=== PATIENT | female | born 1940 | race Caucasian/White ===

== ENCOUNTER 2022-04-14 14:05 | Inpatient (IN) | payer OTHER ==
[2022-04-14 15:27] LABS: #Eosinphils 0.1 thou/uL (0.0-0.7); #Lymphocytes 0.7 thou/uL (1.20-3.40); #Monocytes 0.7 thou/uL (0.11-0.59); #Neutrophils 13.9 thou/uL (1.40-6.50); %Basophils 0.1 % (0.0-1.0); %Eosinophils 0.4 % (0.0-10.0); %Lymphocytes 4.5 % (21.0-51.0); %Monocytes 4.7 % (0.0-10.0); %Neutrophils 90.3 % (42.0-75.0); Hemoglobin 14.4 g/dL (12.0-16.0); Mean Corpuscular HGB CONC 33.7 g/dL (32.0-36.0); Mean Corpuscular Hemoglobin 31.9 pg (27.0-31.0); Mean Corpuscular Volume 94.7 fl (78.0-98.0); Platelet Count 218 10x3/uL (130-400); RBC Distribution Width 11.3 % (11.5-14.5); Red Blood Cell (RBC) Count 4.51 mill/uL (4.20-5.40); White Blood Cell (WBC) Count 15.4 10x3/uL (4.8-10.8)
[2022-04-14 15:31] LABS: PTT 29.2 sec (22.9-36.1); Prothrombin Time 13.5 sec (12.0-14.7)
[2022-04-14] MEDS ORDERED: Ketorolac Tromethamine 30 MG/ML VIAL ONE (15:32)
[2022-04-14] MEDS ORDERED: Morphine 4 MG/ML VIAL ONE (15:32)
[2022-04-14 15:50] LABS: ALT (SGPT) 13 U/L (8-55); AST (SGOT) 16 U/L (5-34); Albumin 4.2 g/dL (3.4-4.8); Alkaline Phosphatase 77 U/L (40-110); Anion Gap 14 mmol/L (10-20); BUN (Urea Nitrogen) 10 mg/dL (9.8-20.1); Calc. Creatinine Clearance 0 mL/min (70-130); Calcium 9.6 mg/dL (7.8-10.44); Carbon Dioxide 25 mmol/L (23-31); Chloride 103 mmol/L (98-107); Estimated GFR 89; Globulin 2.4 g/dL (2.4-3.5); Glucose 214 mg/dL (83-110); Potassium 3.9 mmol/L (3.5-5.1); Protein, Total 6.6 g/dL (5.8-8.1); Sodium 138 mmol/L (136-145)
[2022-04-14] MEDS ORDERED: Dextrose 50% Abboject 50 ML SYRINGE SLOW IVP PRN (16:11)
[2022-04-14] MEDS ORDERED: Ondansetron PF 4 MG/2 ML Vial IVP PRN (16:11)
[2022-04-14] MEDS ORDERED: Insulin Regular 300 UNITS/3 ML VIAL SC PRN (16:11)
[2022-04-14] MEDS ORDERED: Dextrose 5% in Water 1,000 ML IV PRN (16:11)
[2022-04-14] MEDS ORDERED: Ipratropium/Albuterol 3 ML NEB NEB PRN ×2 (16:11→16:14)
[2022-04-14] MEDS ORDERED: hydrALAZINE 20 MG/ML VIAL SLOW IVP PRN ×2 (16:11→17:04)
[2022-04-14] MEDS ORDERED: Acetaminophen 325 MG TAB PO SCH ×2 (16:15→18:00)
[2022-04-14] MEDS ORDERED: Sodium Chloride 0.9% 1,000 ML IV SCH ×2 (16:15→17:07)
[2022-04-14] MEDS ORDERED: traMADol HCl 50 MG TAB PO PRN (16:52)
[2022-04-14] MEDS: traMADol HCl 50 MG TAB PO SCH (18:07)
[2022-04-14] MEDS: Acetaminophen 500 MG TAB PO SCH (18:07)
[2022-04-14] MEDS ORDERED: traMADol HCl 50 MG TAB ONE (18:12)
[2022-04-14] MEDS ORDERED: Acetaminophen 500 MG TAB ONE (18:12)
[2022-04-14 18:36] LABS: Bilirubin Negative (Negative); Blood, Urine Negative (Negative); CAUTI Indications for Culture Dysuria,urgency,freq; Clarity Turbid (Clear); Glucose, Urine (Dipstick) 100 mg/dL (Negative); Ketone, Urine Trace mg/dL (Negative); Leukocyte Negative Leu/uL (Negative); Nitrite 2+ (Negative); Protein, Urine (Dipstick) Negative (Neg-Trace); RBC/HPF 0-3 HPF (0-3); Specific Gravity, Urine 1.015 (1.002-1.036); Squamous Epithelial 0-3 HPF (0-3); Urobilinogen Normal mg/dL (Less than 2); WBC/HPF 0-3 HPF (0-3)
[2022-04-14 18:37] LABS: Bacteria/HPF 1+ HPF (None Seen)
[2022-04-14 18:38] LABS: Urine Culture Reflex No No
[2022-04-14 19:03] LABS: SARS-CoV-2 NAA Rapid Test Not Detected (NotDetected)
[2022-04-14] MEDS ORDERED: Cyclobenzaprine 10 MG TAB ONE (21:21)
[2022-04-14] MEDS: Cyclobenzaprine 10 MG TAB PO PRN (21:27)
[2022-04-14] MEDS: Ibuprofen 200 MG TAB PO PRN (22:24)
[2022-04-14] MEDS: Morphine 2 MG/ML VIAL SLOW IVP PRN (22:58)
[2022-04-14] MEDS: Famotidine/PF 20 mg/2ml Vial SLOW IVP SCH (23:00)
[2022-04-14] MEDS: Senokot S 8.6-50 MG TAB PO SCH (23:17)
[2022-04-15 00:17] VITALS: BMI 29.5
[2022-04-15] MEDS: Acetaminophen 500 MG TAB PO SCH ×4 (00:53→19:46)
[2022-04-15] MEDS: traMADol HCl 50 MG TAB PO SCH ×4 (00:54→19:46)
[2022-04-15] MEDS: Morphine 2 MG/ML VIAL SLOW IVP PRN ×3 (04:09→14:11)
[2022-04-15 07:24] LABS: #Eosinphils 0.1 thou/uL (0.0-0.7); #Lymphocytes 1.4 thou/uL (1.20-3.40); #Monocytes 1.2 thou/uL (0.11-0.59); #Neutrophils 7.5 thou/uL (1.40-6.50); %Basophils 0.5 % (0.0-1.0); %Eosinophils 0.6 % (0.0-10.0); Hemoglobin 12.3 g/dL (12.0-16.0); Mean Corpuscular HGB CONC 34.1 g/dL (32.0-36.0); Mean Corpuscular Hemoglobin 32.5 pg (27.0-31.0); Mean Corpuscular Volume 95.3 fl (78.0-98.0); Mean Platelet Volume 6.9 fL (7.4-10.4); Platelet Count 202 10x3/uL (130-400); RBC Distribution Width 11.2 % (11.5-14.5); Red Blood Cell (RBC) Count 3.78 mill/uL (4.20-5.40); White Blood Cell (WBC) Count 10.2 10x3/uL (4.8-10.8)
[2022-04-15 07:37] LABS: Phosphorus 3.9 mg/dL (2.3-4.7)
[2022-04-15] MEDS: Cyclobenzaprine 10 MG TAB PO PRN (07:37)
[2022-04-15 07:44] LABS: Anion Gap 14 mmol/L (10-20); BUN (Urea Nitrogen) 14 mg/dL (9.8-20.1); Calc. Creatinine Clearance 79 mL/min (70-130); Calcium 8.9 mg/dL (7.8-10.44); Carbon Dioxide 21 mmol/L (23-31); Chloride 104 mmol/L (98-107); Estimated GFR 87; Glucose 168 mg/dL (83-110); Magnesium 1.6 mg/dL (1.6-2.6); Sodium 135 mmol/L (136-145)
[2022-04-15] MEDS ORDERED: TETANUS, DIPHTHERIA TOX,ADULT (TDVAX) 0.5 ML VIAL IM ONE (09:00)
[2022-04-15] MEDS: Famotidine/PF 20 mg/2ml Vial SLOW IVP SCH ×2 (10:59→21:43)
[2022-04-15] MEDS ORDERED: Fentanyl 250 MCG/5 ML VIAL ONE (15:41)
[2022-04-15] MEDS ORDERED: CEFAZOLIN 2 GM VIAL ONE (16:10)
[2022-04-15] MEDS ORDERED: Sodium Chloride 0.9% 100 ML ONE (16:11)
[2022-04-15] MEDS ORDERED: Famotidine/PF 20 mg/2ml Vial ONE (16:15)
[2022-04-15] MEDS: Multivitamin W/ Minerals 1 TAB PO SCH (17:06)
[2022-04-15] MEDS: Polyethylene Glycol 3350 17 GM Packet PO SCH (17:06)
[2022-04-15] MEDS: Senokot S 8.6-50 MG TAB PO SCH ×2 (17:06→21:44)
[2022-04-15] MEDS ORDERED: SUGAMMADEX SODIUM 200 MG/2 ML VIAL ONE (17:11)
[2022-04-15] MEDS ORDERED: Promethazine HCl 25 MG/ML VIAL IM PRN (17:14)
[2022-04-15] MEDS ORDERED: HYDROmorphone 2 MG/ML VIAL SLOW IVP PRN (17:14)
[2022-04-15] MEDS: cefTRIAXone\\ROCEPHIN 2 GM in Sodium Chloride 0.9% 100 ML IVPB SCH (21:43)
[2022-04-16] MEDS: Acetaminophen 500 MG TAB PO SCH ×5 (00:10→18:05)
[2022-04-16] MEDS: traMADol HCl 50 MG TAB PO SCH ×5 (00:10→18:04)
[2022-04-16] MEDS: CEFAZOLIN 2 GM in Sodium Chloride 0.9% 100 ML IVPB SCH ×2 (00:11→08:27)
[2022-04-16] MEDS: Cyclobenzaprine 10 MG TAB PO PRN (00:29)
[2022-04-16] MEDS: Bupropion 150 MG XL TAB PO SCH (08:28)
[2022-04-16] MEDS: Senokot S 8.6-50 MG TAB PO SCH ×2 (08:28→20:34)
[2022-04-16] MEDS: Ibuprofen 200 MG TAB PO PRN (08:29)
[2022-04-16] MEDS: Losartan 25 MG TAB PO SCH (08:29)
[2022-04-16] MEDS: Multivitamin W/ Minerals 1 TAB PO SCH (08:29)
[2022-04-16] MEDS: DULoxetine 60 MG CAP PO SCH (08:29)
[2022-04-16] MEDS: Famotidine/PF 20 mg/2ml Vial SLOW IVP SCH (08:30)
[2022-04-16] MEDS ORDERED: Aspirin 81 mg Enteric Coated Tablet PO SCH (09:00)
[2022-04-16] MEDS: Famotidine 20 MG TAB PO SCH ×2 (10:41→20:34)
[2022-04-16] MEDS: Polyethylene Glycol 3350 17 GM Packet PO SCH (10:42)
[2022-04-16] MEDS: Gabapentin 100 MG CAP PO SCH ×2 (16:08→20:33)
[2022-04-16] MEDS: cefTRIAXone\\ROCEPHIN 2 GM in Sodium Chloride 0.9% 100 ML IVPB SCH (16:08)
[2022-04-17] MEDS: Acetaminophen 500 MG TAB PO SCH ×2 (00:05→06:07)
[2022-04-17] MEDS: traMADol HCl 50 MG TAB PO SCH (00:12)
[2022-04-17] MEDS: Gabapentin 100 MG CAP PO SCH (08:40)
[2022-04-17] MEDS: Bupropion 150 MG XL TAB PO SCH (08:40)
[2022-04-17] MEDS: Multivitamin W/ Minerals 1 TAB PO SCH (08:40)
[2022-04-17] MEDS: Losartan 25 MG TAB PO SCH (08:40)
[2022-04-17] MEDS: DULoxetine 60 MG CAP PO SCH (08:41)
[2022-04-17] MEDS: Senokot S 8.6-50 MG TAB PO SCH (08:41)
[2022-04-17] MEDS: Famotidine 20 MG TAB PO SCH (08:41)
[2022-04-17] MEDS: Polyethylene Glycol 3350 17 GM Packet PO SCH (08:41)
[2022-04-17] MEDS ORDERED: Acetaminophen/Codeine 30-300mg Tablet PO SCH (12:00)
[2022-04-17] MEDS ORDERED: Scopolamine 1.5 mg/72 hour Patch TD SCH (12:00)
[2022-04-17 12:44] VITALS: BP 121/72; TEMP 98.3
[2022-04-17] MEDS ORDERED: Ondansetron ORAL SOLN. 4 MG/5 ML UDCUP PO PRN (13:28)
[2022-04-17] MEDS: cefTRIAXone\\ROCEPHIN 2 GM in Sodium Chloride 0.9% 100 ML IVPB SCH (13:35)
[2022-04-17] MEDS ORDERED: Ondansetron ODT 4 MG TAB PO PRN (14:13)
== END 2022-04-17 15:42 | disposition home or self-care (01) | DRG 481 ==
LOC: ERS 14:05 → ERHOLD 16:11 → SURG A 21:29
PROVIDERS: ADMIT Surgery; ATTEND Surgery
PROC: 0QS706Z Reposition Left Upper Femur with Intramedullary Internal Fixation Device, Open Approach (ICD-10-PCS; principal; 2022-04-15)
DX: S72.142A Displaced intertrochanteric fracture of left femur, initial encounter for closed fracture (principal); N39.0 Urinary tract infection, site not specified; I10 Essential (primary) hypertension; E11.9 Type 2 diabetes mellitus without complications; E78.5 Hyperlipidemia, unspecified; F31.9 Bipolar disorder, unspecified; W18.30XA Fall on same level, unspecified, initial encounter; Z20.822 Contact with and (suspected) exposure to COVID-19; Z90.49 Acquired absence of other specified parts of digestive tract; Z90.89 Acquired absence of other organs; Z90.710 Acquired absence of both cervix and uterus; Z79.899 Other long term (current) drug therapy
CPT/HCPCS: 36416; 70450; 71045; 80048; 80053; 81001; 83735; 84100; 84484; 85025; 85610; 85730; 87077; 87086; 87186; 93005; 96374; 96375; G0390; J0696; J1650; J1885; J2270; J2272; J3010; J3490; J7050; S0028; U0002